=== PATIENT | female | born 1990 | race Caucasian/White ===

== ENCOUNTER 2019-04-05 00:04 | Emergency (ER) | payer BC, MEDICAID ==
[~2019-04-05] VITALS: Ht 162.6 cm; Wt 70.3 kg
--- NOTE | 2019-04-05 00:07 | NUR ---
29 Y/O FEMALE PRESENTS TO ED WITH C/O LEFT LOWER JAW, TOOTH PAIN / X1 DAY. PT HAS MADE A DENTAL APPOINTMENT FOR 04/05/19. AFEBRILE WITH VSS. ER MD AWARE. CONTINUE TO MONITOR.
--- NOTE | 2019-04-05 00:07 | NUR ---
TO LOBBY A/W BED AMBULATORY
[2019-04-05 01:50] VITALS: BP 138/77
--- NOTE | 2019-04-05 01:50 | NUR ---
DISCHARGE PAPER GIVEN TO PT. RX OF NAPROSYN AND AMOXICILLIN GIVEN. INSTRUCTED TO F/U WITH DENTAL DIRECTED. SIDE EFFECTS EXLPANIED. PT VERBALLIZED UNDERSTANDING OF DC INSTRUCTIONS. ALL QUESTIONS ANSWERED.
== END 2019-04-05 01:50 | disposition home or self-care (01) ==
LOC: MED 00:04
DX: K08.89 Other specified disorders of teeth and supporting structures (principal)
CPT/HCPCS: 99283